=== PATIENT | male | born 1960 | race Caucasian/White ===

== ENCOUNTER 2020-02-20 12:36 | Emergency (ER) | payer OTHER ==
--- NOTE | 2020-02-20 13:18 | CR ---
[id number] RAD/RAD Lumbar Spine 2-3V EXAM: AP AND LATERAL LUMBAR SPINE. INDICATION: Back pain COMPARISON: Correlation is made with October 10, 2008 FINDINGS: Surgical changes are seen at the the T12-L1 and L1-L2 levels These findings are stable since last exam There are degenerative changes involving L2-L3 IMPRESSION: DEGENERATIVE CHANGES DEVELOPING AT L2-L3 Bj Hook MD 02/20/20 [id number] Thank you for allowing us to participate in the care of your patient.
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
== END 2020-02-20 13:55 | disposition home or self-care (01) ==
LOC: KA.ED 12:36
DX: M54.5 Low back pain (principal); I10 Essential (primary) hypertension; J44.9 Chronic obstructive pulmonary disease, unspecified; K21.9 Gastro-esophageal reflux disease without esophagitis; Z79.899 Other long term (current) drug therapy; Z87.891 Personal history of nicotine dependence; Z88.5 Allergy status to narcotic agent; Z88.0 Allergy status to penicillin
CPT/HCPCS: 72100; 99283